=== PATIENT | male | born 1950 | race Caucasian/White ===

== ENCOUNTER 2016-12-31 09:18 | Emergency (ER) | payer MEDICARE ==
[2016-12-31 09:47] VITALS: BP 169/105
[2016-12-31] MEDS ORDERED: Acetaminophen TAB* 325 MG PO ONE (09:56)
--- NOTE | 2016-12-31 10:22 | RAD ---
INDICATION: Cough and fever. COMPARISON: There are no prior studies available for comparison. TECHNIQUE: Dual-energy PA and lateral views of the chest were obtained. FINDINGS: The heart is upper limits of normal in size. The lungs are underinflated and clear. No pleural effusion is seen. IMPRESSION: NO EVIDENCE FOR ACUTE FINDING.
[2016-12-31] MEDS ORDERED: cefTRIAXone VIAL(*) 1,000 MG VIAL IM ONE (10:29)
[2016-12-31] MEDS ORDERED: Levalbuterol 0.63MG/3ML NEB INH ONE (10:30)
[2016-12-31] MEDS ORDERED: Ibuprofen TAB* 600 MG PO ONE (10:30)
--- NOTE | 2016-12-31 10:40 | UC ---
Respiratory Complaint HPI - HPI Summary HPI Summary: Patient is having increased respiratory symtpoms for the past week. He typically gets self diagnosed pnuemonia this time of year. presents with fever, PAINTING, chest tightness SOB. - History of Current Complaint Chief Complaint: UCRespiratory Stated Complaint: SORE THROAT COUGH CONGESTION Time Seen by Provider: 12/31/16 09:55 Hx Obtained From: Patient Onset/Duration: Sudden Onset, Lasting Days Timing: Constant Severity Initially: Moderate Severity Currently: Moderate Character: Cough: Nonproductive Aggravating Factors: Exertion, Deep Breaths, Recumbent Position Alleviating Factors: Nothing Associated Signs And Symptoms: Positive: Dyspnea, Fever, Chills, Wheezing, Sinus Discomfort - Risk Factors Pulmonary Embolism Risk Factors: Negative Cardiac Risk Factors: Hypertension, CAD Pseudomonas Risk Factors: Negative Tuberculosis Risk Factors: Negative - Allergies/Home Medications Allergies/Adverse Reactions: Allergies Allergy/AdvReac Type Severity Reaction Status Date / Time No Known Allergies Allergy Verified 12/31/16 09:47 Home Medications: Home Medications Aspirin EC Low Dose* [Ecotrin EC Low Dose 81 MG*] 81 mg PO DAILY 12/31/16 [ History Confirmed 12/31/16] Heart Health Drops 1 dose PO DAILY 12/31/16 [History Confirmed 12/31/16] Multivitamins/Minerals TAB* [Thera M Plus TAB*] 1 tab PO DAILY 12/31/16 [ History Confirmed 12/31/16] PMH/Surg Hx/FS Hx/Imm Hx Previously Healthy: Yes Cardiovascular History Of: Reports: Hypertension - Surgical History Surgical History: Yes Surgery Procedure, Year, and Place: appy - Family History Known Family History: Positive: Cardiac Disease, Hypertension - Social History Alcohol Use: Daily Alcohol Amount: 1 glass of wine Substance Use Type: None Smoking Status (MU): Former Smoker Amount Used/How Often: 3 ppd Length of Time of Smoking/Using Tobacco: started age 16, quit age 38 When Did the Patient Quit Smoking/Using Tobacco: quit at age 38 Review of Systems Constitutional: Fever, Chills, Fatigue Skin: Negative Eyes: Negative ENT: Sore Throat, Nasal Discharge Respiratory: Shortness Of Breath, Cough Cardiovascular: Negative Gastrointestinal: Negative Genitourinary: Negative Motor: Negative Neurovascular: Negative Musculoskeletal: Negative Neurological: Headache Psychological: Negative All Other Systems Reviewed And Are Negative: Yes Physical Exam Triage Information Reviewed: Yes Appearance: Well-Nourished, Ill-Appearing, Pain Distress Vital Signs: Initial Vital Signs Temp 102.0 F 12/31/16 09:41 Pulse 107 12/31/16 09:41 Resp 20 12/31/16 09:41 BP 169/105 12/31/16 09:41 Pulse Ox 95 12/31/16 09:41 Vital Signs Reviewed: Yes Eye Exam: Normal Eyes: Positive: Conjunctiva Clear ENT Exam: Normal ENT: Positive: Pharyngeal erythema, TM bulging Dental Exam: Normal Neck exam: Normal Neck: Positive: Supple, Nontender, No Lymphadenopathy Respiratory Exam: Normal Respiratory: Positive: No accessory muscle use, Respiratory distress - mild, Decreased breath sounds, Wheezing, Inspiration Cardiovascular Exam: Normal Cardiovascular: Positive: No Murmur, Pulses Normal, Tachycardia Abdominal Exam: Normal Abdomen Description: Positive: Nontender, No Organomegaly, Soft Bowel Sounds: Positive: Present Musculoskeletal Exam: Normal Musculoskeletal: Positive: Strength Intact, ROM Intact, No Edema Neurological Exam: Normal Neurological: Positive: Alert Psychological Exam: Normal Skin Exam: Normal UC Diagnostic Evaluation - Laboratory O2 Sat by Pulse Oximetry: 95 Respiratory Course/Dx - Course Course Of Treatment: hx obtained, exam performed, meds reviewed, chest xray neg for acute disease. given Motrin, ROcephin, neb treatment, prescribed ABX told to follow up in 2 days if not improving. Treatement based on clinical signs and symptoms. Fever, respiratory distress, lack of medicatl care over the past 10 years. 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 - Differential Dx/Diagnosis Differential Diagnosis/HQI/PQRI: Asthma, Bronchitis, CHF, Pulmonary Edema, Exacerbation Of COPD, Influenza, Laryngitis, Sinusitis Provider Diagnoses: Fever. SOB. Cough. mild respiratory distress Discharge - Discharge Plan Condition: Stable Disposition: HOME Patient Education Materials: Fever in Adults (ED) Additional Instructions: 1. Take the medication as prescribed. 2. Increase fluid intake and get plenty of rest. 3. Tylenol or Ibuprofen for pain and fever 4. Follow up here in 2 days if fever is still present or you are not improving. sooner if needed.
[2016-12-31] MEDS ORDERED: Lidocaine 1%* 5 ML VIAL ONE (10:43)
== END 2016-12-31 11:17 | disposition home or self-care (01) ==
LOC: UCCORT 09:18
DX: R50.9 Fever, unspecified (principal); R06.02 Shortness of breath; R05 Cough; R06.00 Dyspnea, unspecified; I10 Essential (primary) hypertension; Z87.891 Personal history of nicotine dependence
CPT/HCPCS: 71020; 96372; 99203; A9270-GY; G0463; J0696

== ENCOUNTER 2017-01-01 12:28 | Emergency (ER) | payer MEDICARE ==
--- NOTE | 2017-01-01 13:27 | UC ---
UC General HPI - HPI Summary HPI Summary: just doesn't feel well. Has coughing "spasms". SOB. Has been sick for several days. Does not get regular medical care. Was seen here yesterday with fever 102 , had CXR neg, rx'd with xopenex, Ceftriaxone 1gm and started on Ceftin and azithromycin. Has had 3 doses of Ceftin and 2 doses of azithromycin. Pt states he took a different kind of "heart drops" and he thinks "they poisoned him", "bound him up". Now has watery stool after taking an OTC laxative. Denies chest pain or cardiac disease. - History of Current Complaint Chief Complaint: UCGeneralIllness Stated Complaint: DIFFICULTY BREATHING Time Seen by Provider: 01/01/17 13:26 Hx Obtained From: Patient, Family/[place] Room Operator - Onset/Duration: Gradual Onset, Lasting Days, Still Present Timing: Constant Onset Severity: Moderate Current Severity: Moderate Associated Signs & Symptoms: Positive: Cough, Diarrhea, Fever, SOB - Allergy/Home Medications Allergies/Adverse Reactions: Allergies Allergy/AdvReac Type Severity Reaction Status Date / Time No Known Allergies Allergy Verified 01/01/17 12:49 PMH/Surg Hx/FS Hx/Imm Hx Cardiovascular History Of: Reports: Hypertension - Surgical History Surgical History: Yes Surgery Procedure, Year, and Place: Appendectomy - Family History Known Family History: Positive: Cardiac Disease, Hypertension - Social History Occupation: Employed Full-time - [employer] Lives: With Family - Alcohol Use: Daily Alcohol Amount: 1 glass of wine Substance Use Type: None Smoking Status (MU): Former Smoker Amount Used/How Often: 3 ppd Length of Time of Smoking/Using Tobacco: started age 16, quit age 38 When Did the Patient Quit Smoking/Using Tobacco: quit at age 38 - Immunization History Most Recent Influenza Vaccination: Not the 2016/2016 Season Review of Systems Constitutional: Fever Respiratory: Shortness Of Breath, Cough Cardiovascular: Negative Gastrointestinal: Diarrhea - after being constipated Musculoskeletal: Negative Neurological: Negative Psychological: Negative All Other Systems Reviewed And Are Negative: Yes Physical Exam Triage Information Reviewed: Yes Appearance: Well-Nourished, Ill-Appearing, Obese Vital Signs: Initial Vital Signs Temp 98.2 F 01/01/17 12:43 Pulse 110 01/01/17 12:43 Resp 30 01/01/17 12:43 BP 211/128 01/01/17 12:43 Pulse Ox 98 01/01/17 12:43 HTN, tachypnea and tachycardia noted Vital Signs Reviewed: Yes Eyes: Positive: Conjunctiva Clear ENT: Positive: Pharynx normal, TMs normal Neck: Positive: Supple, Nontender, No Lymphadenopathy Respiratory: Positive: Decreased breath sounds, Wheezing Cardiovascular: Positive: No Murmur, Pulses Normal, Brisk Capillary Refill, Tachycardia Musculoskeletal: Positive: Strength Intact, ROM Intact, No Edema Neurological: Positive: Alert, Muscle Tone Normal Psychological Exam: Normal Skin Exam: Normal Course/Dx - Course Course Of Treatment: Pt has already received IM Ceftriaxone and 2 days RX of oral antibiotics, and returns with continued SOB, tachypnea, tachycardia and hypertensive urgency. Denies CP or hx [place]. Recommend transfer to ED. Pt and refuse ambulance. Will go by private car to [facility]. Pt declines further treatment prior to traveling by car. - Differential Dx - Multi-Symptom Differential Diagnoses: Sepsis, Other - pneumonia, influenza Provider Diagnoses: pneumonia. hypertensive urgency Discharge - Discharge Plan Condition: Stable Disposition: AGAINST MEDICAL ADVICE
[2017-01-01 13:51] VITALS: BP 224/139
== END 2017-01-01 13:51 | disposition left against medical advice (07) ==
LOC: UCCORT 12:28
DX: J18.9 Pneumonia, unspecified organism (principal); I16.0 Hypertensive urgency; E66.9 Obesity, unspecified; Z87.891 Personal history of nicotine dependence
CPT/HCPCS: 99213; G0463